=== PATIENT | female | born 1990 | race American Indian/Alaskan Native ===

== ENCOUNTER 2017-08-31 11:18 | Emergency (ER) | payer BC, MEDICAID ==
--- NOTE | 2017-08-31 16:17 | Emergency Department Report ---
HPI - General Chief Complaint: Upper Respiratory Infection Time Seen by Provider: 08/31/17 15:40 - HPI HPI: 26-year-old female presents today complaining chills, nausea, cough, body aches , fever 2 days. Patient states that her relatives have been sick at home. Denies diarrhea, chest pain, shortness of breath, abdominal pain. He tried TheraFlu and NyQuil without relief. ED Past Medical Hx - Past Medical History Hx Hypertension: No Hx Diabetes: No Hx Deep Vein Thrombosis: No Hx Renal Disease: No Hx Sickle Cell Disease: No Hx Seizures: No Hx Asthma: Yes Hx HIV: No Additional medical history: MS - Social History Smoking Status: Never Smoker Substance Use Type: None - Medications Home Medications: Home Medications Medication Instructions Recorded Confirmed Last Taken Type Fluticasone [Flonase] 1 spray NS QDAY #1 bottle 08/31/17 Unknown Rx Oseltamivir [Tamiflu] 75 mg PO BID #10 cap 08/31/17 Unknown Rx Promethazine /Codeine 5 ml PO Q6H PRN #150 ml 08/31/17 Unknown Rx [Phenergan/Codeine 6.25-10 mg/5 ml] ED Review of Systems ROS: Stated complaint: FLU LIKE SX Other details as noted in HPI Constitutional: chills, fever, malaise Eyes: denies: eye pain ENT: denies: ear pain, throat pain, congestion Respiratory: cough. denies: shortness of breath, wheezing Cardiovascular: denies: chest pain, palpitations Endocrine: no symptoms reported Gastrointestinal: nausea. denies: abdominal pain, vomiting Skin: denies: rash, lesions Neurological: headache Physical Exam - Physical Exam Vital Signs: Vital Signs 08/31/17 11:34 Temperature 99.5 F Pulse Rate 100 H Respiratory 20 Rate Blood Pressure 106/71 O2 Sat by Pulse 96 Oximetry Physical Exam: GENERAL: The patient is well-developed and well-nourished. Appears ill HEAD: Normocephalic. Atraumatic. No sinus tenderness to palpation. EYES: Extraocular motions are intact, PERRL. EARS: External auditory canals and tympanic membranes clear; hearing grossly intact. NOSE: Congested nasal mucosa. THROAT: No erythema, swelling or exudates. Cobblestoning of posterior pharynx noted, clear postnasal drip. NECK: Supple, nontender, without lymphadenopathy. No meningitic signs are noted. CHEST/LUNGS: Clear to auscultation throughout. Cough appreciated. HEART/CARDIOVASCULAR: Regular rate and rhythm. No murmurs, rubs or gallops. ABDOMEN: Abdomen is soft, nontender. Bowel sounds normoactive. No guarding or rebound tenderness. EXTREMITIES: Peripheral pulses intact. Capillary refill less than 2 seconds. NEURO: Alert and oriented x 3. Normal gait. ED Course Vital Signs 08/31/17 11:34 Temperature 99.5 F Pulse Rate 100 H Respiratory 20 Rate Blood Pressure 106/71 O2 Sat by Pulse 96 Oximetry ED Medical Decision Making - Lab Data Vital Signs 08/31/17 11:34 Temperature 99.5 F Pulse Rate 100 H Respiratory 20 Rate Blood Pressure 106/71 O2 Sat by Pulse 96 Oximetry - Medical Decision Making 26-year-old female presents today complaining of fever, chills, nausea, cough, body aches 2 days. A rapid flu test is negative. However patient will receive a clinical diagnosis of influenza. Patient is in no acute distress at this time. She will be discharged home and is encouraged to follow up with a primary care provider. He will be sent home on Tamiflu, promethazine with codeine, Flonase is encouraged to return to the emergency room for any worsening symptoms. Critical care attestation.: If time is entered above; I have spent that time in minutes in the direct care of this critically ill patient, excluding procedure time. ED Disposition Clinical Impression: Influenza Disposition: DC-01 TO HOME OR SELFCARE Is pt being admited?: No Does the pt Need Aspirin: No Condition: Stable Instructions: Influenza (ED) Additional Instructions: Alternate Tylenol and Motrin for fever and pain. Follow with primary care provider. Return to the emergency department if symptoms worsen. Prescriptions: Fluticasone [Flonase] 1 spray NS QDAY #1 bottle Oseltamivir [Tamiflu] 75 mg PO BID #10 cap Promethazine /Codeine [Phenergan/Codeine 6.25-10 mg/5 ml] 5 ml PO Q6H PRN #150 ml PRN Reason: cough Referrals: ARIANNA PARADA MD [Primary Care Provider] - 3-5 Days Forms: Work/School Release Form(ED) Time of Disposition: 16:17
[2017-08-31 17:01] VITALS: BP 100/68
== END 2017-08-31 17:17 | disposition home or self-care (01) ==
LOC: ED 11:18
DX: J11.1 Influenza due to unidentified influenza virus with other respiratory manifestations (principal)
CPT/HCPCS: 87400; 99283